=== PATIENT | male | born 1995 | race African-American/Black ===

== ENCOUNTER 2019-04-09 08:59 | Emergency (ER) | payer SELFPAY ==
[2019-04-09] MEDS ORDERED: Aspirin Chewable 81 MG TAB ONE ×2 (09:15)
[2019-04-09 09:33] LABS: Eosinophils 3 % (0-10); Lymphocytes 41 % (21-51); MDiff Complete? YES; Mean Corpuscular HGB CONC 31.7 g/dL (32.0-36.0); Mean Corpuscular Hemoglobin 27.9 pg (27.0-31.0); Mean Corpuscular Volume 87.9 fL (78.0-98.0); Mean Platelet Volume 6.8 fL (7.4-10.4); Monocytes 7 % (0-10); Neutrophil 47 % (42-75); Platelet Count 317 thou/uL (130-400); RBC Distribution Width 11.5 % (11.5-14.5); Reactive Lymphocytes 1 % (0-10); Red Blood Cell (RBC) Count 5.01 mill/uL (4.70-6.10); White Blood Cell (WBC) Count 5.4 thou/uL (4.8-10.8)
[2019-04-09 09:41] LABS: ALT (SGPT) 14 U/L (8-55); AST (SGOT) 24 U/L (5-34); Albumin 4.4 g/dL (3.5-5.0); Alkaline Phosphatase 48 U/L (40-150); Anion Gap 13 mmol/L (10-20); BUN (Urea Nitrogen) 13 mg/dL (8.9-20.6); Bilirubin, Total 0.6 mg/dL (0.2-1.2); Calc. Creatinine Clearance 0 mL/min (70-130); Calcium 9.6 mg/dL (7.8-10.44); Carbon Dioxide 25 mmol/L (22-29); Chloride 107 mmol/L (98-107); Estimated GFR-MDRD Greater than 90; Globulin 3.4 g/dL (2.4-3.5); Glucose 97 mg/dL (70-105); Potassium 4.2 mmol/L (3.5-5.1); Protein, Total 7.8 g/dL (6.0-8.3); Sodium 141 mmol/L (136-145)
[2019-04-09] MEDS ORDERED: Ketorolac Tromethamine 30 MG/ML VIAL ONE (09:54)
[2019-04-09 11:43] LABS: Troponin I Less than 0.010 ng/mL (< 0.028)
--- NOTE | 2019-04-09 17:18 | RAD ---
PORTABLE CHEST: 04/09/19 An AP portable film at 0917 is compared with a 01/28/15 study. The heart is normal in size and the lungs are clear. No infiltrate or effusion was seen. There is no vascular congestion or edema. IMPRESSION: No acute thoracic finding. POS: HOME
== END 2019-04-09 11:56 | disposition home or self-care (01) ==
LOC: BURERS 08:59
DX: I45.10 Unspecified right bundle-branch block (principal); M94.0 Chondrocostal junction syndrome [Tietze]; J06.9 Acute upper respiratory infection, unspecified; F32.9 Major depressive disorder, single episode, unspecified; F17.200 Nicotine dependence, unspecified, uncomplicated
CPT/HCPCS: 36415; 71045; 80053; 84484; 85025; 93005; 94760; 96374; J1885

== ENCOUNTER 2019-10-18 12:53 | Emergency (ER) | payer SELFPAY | END 2019-10-18 13:13 | disposition home or self-care (01) | LOC: BURERS 12:53 | DX: M25.511 Pain in right shoulder (principal) | CPT/HCPCS: 99281 ==

== ENCOUNTER 2022-08-14 18:22 | Emergency (ER) | payer OTHER, SELFPAY ==
[2022-08-14] MEDS ORDERED: Ketorolac Tromethamine 30 MG/ML VIAL ONE (19:02)
[2022-08-14] MEDS ORDERED: Dexamethasone 4 MG TAB ONE (19:02)
[2022-08-14] MEDS ORDERED: Dexamethasone 4 MG TAB PO SCH (19:15)
== END 2022-08-14 19:17 | disposition home or self-care (01) ==
LOC: BURERS 18:22
DX: M25.512 Pain in left shoulder (principal); G89.29 Other chronic pain; Z87.891 Personal history of nicotine dependence
CPT/HCPCS: 96372; 99283; J1885; J8540